=== PATIENT | female | born 1990 | race Caucasian/White ===

== ENCOUNTER 2017-03-22 18:29 | Emergency (ER) | payer SELFPAY ==
--- NOTE | ~2017-03-22 | ER ---
PATIENT'S NAME: [facility] AGE: 26 Y [address] ROOM: [place] [address] LOCATION: [facility] ADMIT DATE: 03/22/2017 ER/Outpatient Report DISCHARGE DATE: 03/22/2017 FAMILY PHYSICIAN: PHYSICIAN, NO ATTENDING PHYSICIAN: Lam Dacosta Time of Evaluation: Seen at 1845 hours. HISTORY OF PRESENT ILLNESS: The patient is a 26-year-old female, who presents complaining of burning, urgency, frequency of urination; symptoms started about 2 days ago. Said she has been taking some AZO [id number] for symptoms. She denies flank pain. She has had no fever or chills or vomiting. The patient does have a history of kidney infection in the past. Last menstrual period was about a week ago. ALLERGIES: NONE. HOME MEDICATIONS: None. MEDICAL HISTORY: Includes kidney infection. SURGERIES: None. SOCIAL HISTORY: Smoker of pack a day. History of some opiate and meth use. REVIEW OF SYSTEMS: GENERAL: No fever or chills. HEAD AND ENT: Denies any recent sore throat. RESPIRATORY AND CARDIOVASCULAR: Negative. GASTROINTESTINAL: No vomiting. No flank pain. CHEST: Had some discomfort over her bladder. GENITOURINARY: Includes burning, frequency, urgency of urination. PHYSICAL EXAMINATION: VITAL SIGNS: Blood pressure 139/87, temperature is 97, respiratory rate 16, pulse 76, and O2 saturations 98%. GENERAL APPEARANCE: No obvious distress. Well nourished. HEAD AND ENT: Unremarkable. ABDOMEN: Slight tenderness, suprapubic. PATIENT'S NAME: LOC [facility] AGE: 26 Y [address] ROOM: [place] [address] LOCATION: [facility] ADMIT DATE: 03/22/2017 ER/Outpatient Report DISCHARGE DATE: 03/22/2017 FAMILY PHYSICIAN: PHYSICIAN, NO ATTENDING PHYSICIAN: Lam Dacosta LABORATORY DATA: Urine had positive leukocytes; however, nitrite was negative. There was some presence of ketones, but no glucose. Micro: 50 to 100 white cells, negative red cells, and she did have 5 to 10 epi's. Bacteria was negative. ASSESSMENT: Dysuria. PLAN: Continue the AZO for symptoms. Did put her on Macrobid b.i.d. for 5 days. Recommend followup in 48 hours if not improving. YARELY HERNANDEZ FOR MD MAY BRAUN/modl /[id number] d: 03/23/171 t: 03/27/17 1009, OUTPATIENT REPORT
[2017-03-22 18:49] LABS: BILIRUBIN URINE NEGATIVE (NEGATIVE); BLOOD URINE 25 /UL (NEGATIVE); COLOR URINE YELLOW (YELLOW); GLUCOSE URINE NEGATIVE (NEGATIVE); KETONE URINE 50 mg/dL (NEGATIVE); LEUKOCYTES URINE 500 /UL (NEGATIVE); NITRITE URINE NEGATIVE (NEGATIVE); PROTEIN URINE 15 mg/dL (NEGATIVE); SPEC GRAVITY URINE 1.015 (1.003-1.035); TURBIDITY URINE 1+ (CLEAR); UROBILINOGEN URINE NORMAL (NORMAL)
[2017-03-22 19:08] LABS: RBC URINE NEGATIVE #/HPF (NEGATIVE); WBC URINE 50-100 #/HPF (NEGATIVE)
[2017-03-22 19:09] LABS: BACTERIA URINE NEGATIVE (NEGATIVE); MUCUS URINE 2+ (NEGATIVE)
== END 2017-03-22 19:26 | disposition disaster alternative care site (69) ==
LOC: GMED 18:29
PROVIDERS: Emergency Medicine
DX: R30.0 Dysuria (principal); F17.210 Nicotine dependence, cigarettes, uncomplicated